=== PATIENT | female | born 1985 | race Asian ===

== ENCOUNTER → 2024-06-13 | Outpatient (CLI) | payer BC, OTHER ==
[2024-06-13 16:52] LABS: ALBUMIN 3.9 g/dL (3.5-5.0); BILIRUBIN,TOTAL 0.5 mg/dL (0.2-1.0); CREATININE 0.8 mg/dL (0.5-1.0); MAGNESIUM 2.1 mg/dL (1.80-2.40); POTASSIUM 4.8 mmol/L (3.5-5.1); TOTAL PROTEIN, SERUM 8.4 g/dL (6.0-8.3)
== END | disposition home or self-care (01) ==
LOC: LAB 15:57
PROVIDERS: ATTEND Internal Medicine Cardiovascular Disease
DX: I10 Essential (primary) hypertension (principal)
CPT/HCPCS: 36415; 80053; 83735; 83880

== ENCOUNTER → 2024-10-09 | Outpatient (CLI) | payer BC, OTHER ==
--- NOTE | 2024-10-14 14:23 | HMCSR ---
APPROVED REPORT EXAM: Two-dimensional and M-mode echocardiogram with Doppler and color Doppler. INDICATION ICD: Atherosclerotic heart disease of [place] coronary artery without angina pectoris I25.10 2D Dimensions RVDd3.2 cmLVEF(%)55.7 (>50%)LVED Vol(simp.)90.0 mL IVSd0.8 (0.7-1.1cm)FS(%)29 %LVES Vol(simp.)40.0 mL LVDd3.8 (3.8-5.6cm)LA (2D)3.0 (1.6-4.0cm)LVEF(%, simp.)55 % PWd0.8 (0.7-1.1cm)Ao Root(2D)2.4 (2.0-3.7cm)LA ESV INDEX (BP)22.17 mL/m2 LVDs2.7 (2.5-4.0cm)LVOT diam2.0 (1.8-2.4cm) IVC diam1.3 cm M-Mode Dimensions EPSS0.7 cm Aortic Valve AoV Vmax1.2 m/Jet Peak GR5.8 mmHgLVOT Vmax0.9 m/s AoV VTI0.2 mAo Mean GR3.7 mmHgLVOT VTI0.18 m EM (VMAX)2.8 cm2AVA (VTI) 2.8 cm2 Mitral Valve MV E Vmax64.9 cm/sDECEL Lbqp414 ms MV A Vmax48.8 cm/sP 1/2 T74 ms E/A ratio1.3MVA (PHT)3.0 cm2 MR Max PG20 mmHg TDI E/E' Medial6.2E/E' Lateral3.3 Pulmonary Valve PV Vmax0.9 m/sPV VTI0.16 mPV Mean GR2 mmHg PV Peak GR3.0 mmHgPI End Clara. Collin 0.8 cm/s Tricuspid Valve TR Vmax1.2 m/sRAP (EST) 3 mmHgRVSP8.4 mmHg TR Peak GR5.4 mmHg Left Ventricle Left ventricular cavity size is normal. There is normal LV segmental wall motion. There is normal lef t ventricular wall thickness. LVEF is >55%. No left ventricle thrombus noted on this study. Left vent ricular filling pattern is normal for age. Right Ventricle The right ventricle is normal size. The right ventricular systolic function is normal. Atria The left atrium size is normal. The right atrium size is normal. Aortic Valve Aortic valve is trileaflet. Aortic valve leaflets are sclerotic but open well. No aortic regurgitatio n is present. There is no aortic valvular stenosis. Mitral Valve Mitral valve leaflets are sclerotic but open well. Mitral regurgitation is trace. There is no mitral valve stenosis. Tricuspid Valve The tricuspid valve leaflets appear normal. There is trace tricuspid regurgitation. Pulmonic Valve The pulmonic valve leaflets are thin and pliable; valve motion is normal. There is trace pulmonic antoinette vular regurgitation. Great Vessels The aortic root is normal in size. The IVC is normal in size and collapses >50% with inspiration. Pericardium No pericardial effusion. Conclusion Left ventricular cavity size is normal. LVEF is >55%. The right ventricle is normal size. The left atrium size is normal. Aortic valve is trileaflet. Aortic valve leaflets are sclerotic but open well. No aortic regurgitation is present. Mitral valve leaflets are sclerotic but open well. Mitral regurgitation is trace. There is trace tricuspid regurgitation. There is trace pulmonic valvular regurgitation. The aortic root is normal in size. The IVC is normal in size and collapses >50% with inspiration. No pericardial effusion.
== END | disposition home or self-care (01) ==
LOC: EDUNIT# 07-24 15:30 → SHCH 15:21
PROVIDERS: ATTEND Internal Medicine Cardiovascular Disease
DX: I08.0 Rheumatic disorders of both mitral and aortic valves (principal); I10 Essential (primary) hypertension; I25.10 Atherosclerotic heart disease of native coronary artery without angina pectoris
CPT/HCPCS: 93306